=== PATIENT | female | born 1945 | race Caucasian/White ===

== ENCOUNTER 2018-03-19 19:49 | Emergency (ER) | payer MEDICARE, OTHER ==
[2018-03-19] MEDS ORDERED: Ondansetron ODT 4 MG TAB ONE (20:05)
[2018-03-19] MEDS ORDERED: Morphine 4 MG/ML Carpuject ONE ×2 (20:05→20:47)
[2018-03-19 21:07] LABS: #Basophils 0.1 thou/uL (0.0-0.2); #Eosinphils 0.1 thou/uL (0.0-0.7); #Lymphocytes 1.4 thou/uL (1.20-3.40); #Monocytes 0.9 thou/uL (0.11-0.59); #Neutrophils 10.9 thou/uL (1.40-6.50); %Basophils 0.6 % (0.0-1.0); %Eosinophils 0.7 % (0.0-10.0); %Lymphocytes 10.6 % (21.0-51.0); %Monocytes 6.4 % (0.0-10.0); %Neutrophils 81.7 % (42.0-75.0); Hemoglobin 13.9 g/dL (12.0-16.0); Mean Corpuscular HGB CONC 33.8 g/dL (32.0-36.0); Mean Corpuscular Hemoglobin 33.5 pg (27.0-31.0); Mean Corpuscular Volume 98.9 fL (78.0-98.0); Mean Platelet Volume 10.8 fL (7.4-10.4); Platelet Count 225 thou/uL (130-400); RBC Distribution Width 11.7 % (11.5-14.5); Red Blood Cell (RBC) Count 4.16 mill/uL (4.20-5.40); White Blood Cell (WBC) Count 13.3 thou/uL (4.8-10.8)
[2018-03-19 21:09] LABS: ALT (SGPT) 23 U/L (8-55); AST (SGOT) 33 U/L (5-34); Albumin 4.6 g/dL (3.4-4.8); Alkaline Phosphatase 113 U/L (40-150); Anion Gap 17 mmol/L (10-20); BUN (Urea Nitrogen) 21 mg/dL (9.8-20.1); Bilirubin, Total 0.6 mg/dL (0.2-1.2); Calc. Creatinine Clearance 0 mL/min (70-130); Calcium 9.8 mg/dL (7.8-10.44); Carbon Dioxide 25 mmol/L (23-31); Chloride 106 mmol/L (98-107); Estimated GFR-MDRD 73; Globulin 2.8 g/dL (2.4-3.5); Glucose 104 mg/dL (83-110); Potassium 4.1 mmol/L (3.5-5.1); Protein, Total 7.4 g/dL (6.0-8.3); Sodium 144 mmol/L (136-145)
--- NOTE | 2018-03-19 22:42 | RAD ---
LEFT HUMERUS TWO VIEWS: Date: 03-19-18 FINDINGS: There is a fracture through the midshaft of the humerus near the tip of the humeral component of the shoulder arthroplasty. There is lucency between the arthroplasty and cortex suggesting that there may be loosening as well. The fragments are significantly displaced. IMPRESSION: Displaced fracture of the mid-humeral shaft near the tip of the humeral component of the patient's sh oulder arthroplasty. POS: HOME
== END 2018-03-19 21:03 | disposition short-term general hospital (02) ==
LOC: BURERS 19:49
DX: S42.302A Unspecified fracture of shaft of humerus, left arm, initial encounter for closed fracture (principal); F32.9 Major depressive disorder, single episode, unspecified; Z87.891 Personal history of nicotine dependence; Z79.899 Other long term (current) drug therapy; V80.010A Animal-rider injured by fall from or being thrown from horse in noncollision accident, initial encounter
CPT/HCPCS: 80053; 85025; 96372; 96374; J2270; Q0162

== ENCOUNTER 2019-01-07 11:31 | Emergency (ER) | payer MEDICARE, OTHER ==
--- NOTE | 2019-01-07 18:33 | RAD ---
RIGHT WRIST 3 VIEWS: Date: 01/07/19 Fracture of the distal radius is present with minimal displacement or angulation. While there is a li ttle irregularity at the base of the ulnar styloid, a definite fracture cannot be diagnosed at this t khanh. Carpal bones appear intact. IMPRESSION: Acute fracture of the distal radius. POS: HOME
== END 2019-01-07 12:18 | disposition home or self-care (01) ==
LOC: BURERS 11:31
DX: S52.501A Unspecified fracture of the lower end of right radius, initial encounter for closed fracture (principal); F32.9 Major depressive disorder, single episode, unspecified; F41.9 Anxiety disorder, unspecified; W01.0XXA Fall on same level from slipping, tripping and stumbling without subsequent striking against object, initial encounter
CPT/HCPCS: 29125

== ENCOUNTER 2019-08-22 14:42 | Emergency (ER) | payer MEDICARE, OTHER | END 2019-08-22 15:56 | disposition home or self-care (01) | LOC: BURERS 14:42 | DX: T16.1XXA Foreign body in right ear, initial encounter (principal); F32.9 Major depressive disorder, single episode, unspecified; F41.9 Anxiety disorder, unspecified; E78.00 Pure hypercholesterolemia, unspecified | CPT/HCPCS: 69200 ==

== ENCOUNTER 2020-04-21 09:49 | Emergency (ER) | payer MEDICARE, OTHER ==
[2020-04-21] MEDS ORDERED: Ondansetron PF 4 MG/2 ML Vial ONE (10:22)
[2020-04-21] MEDS ORDERED: Morphine 4 MG/ML VIAL ONE (10:22)
[2020-04-21 10:23] LABS: #Basophils 0.1 thou/uL (0.0-0.2); #Eosinphils 0.1 thou/uL (0.0-0.7); #Lymphocytes 1.6 thou/uL (1.20-3.40); #Neutrophils 9.1 thou/uL (1.40-6.50); %Basophils 0.6 % (0.0-1.0); %Eosinophils 1.1 % (0.0-10.0); %Lymphocytes 13.2 % (21.0-51.0); %Monocytes 8.3 % (0.0-10.0); %Neutrophils 76.7 % (42.0-75.0); Hemoglobin 14.2 g/dL (12.0-16.0); Mean Corpuscular HGB CONC 32.5 g/dL (32.0-36.0); Mean Corpuscular Hemoglobin 33.2 pg (27.0-31.0); Mean Platelet Volume 9.5 fL (7.4-10.4); Platelet Count 198 thou/uL (130-400); Red Blood Cell (RBC) Count 4.28 mill/uL (4.20-5.40); White Blood Cell (WBC) Count 11.9 thou/uL (4.8-10.8)
[2020-04-21 10:25] LABS: Bilirubin Small (Negative); Blood, Urine Trace (Negative); Clarity Slightly Cloudy (Clear); Glucose, Urine (Dipstick) Negative (Negative); Ketone, Urine 15 mg/dL (Negative); Leukocyte Small (Negative); Nitrite Negative (Negative); Protein, Urine (Dipstick) Trace mg/dL (Neg-Trace); Specific Gravity, Urine 1.025 (1.005-1.030); Urobilinogen 0.2 mg/dL (Less than 2); pH, Urine 6.5 (5.0-9.0)
[2020-04-21 10:29] LABS: Bacteria/HPF 1+ HPF (None Seen); Mucous/LPF 1+ LPF (<2+)
[2020-04-21 10:40] LABS: ALT (SGPT) 19 U/L (8-55); AST (SGOT) 19 U/L (5-34); Albumin 4.4 g/dL (3.4-4.8); Alkaline Phosphatase 102 U/L (40-110); Anion Gap 17 mmol/L (10-20); BUN (Urea Nitrogen) 15 mg/dL (9.8-20.1); Calc. Creatinine Clearance 0 mL/min (70-130); Calcium 9.5 mg/dL (7.8-10.44); Carbon Dioxide 23 mmol/L (23-31); Chloride 105 mmol/L (98-107); Estimated GFR-MDRD 77; Globulin 2.8 g/dL (2.4-3.5); Glucose 117 mg/dL (83-110); Lipase 115 U/L (8-78); Protein, Total 7.2 g/dL (6.0-8.3); Sodium 141 mmol/L (136-145)
[2020-04-21] MEDS ORDERED: Iopamidol 370 76% 100 ML VIAL ONE (11:42)
[2020-04-21] MEDS ORDERED: Mag-Al Plus 1200 MG/1200 MG/120 MG/30 ML UDCUP ONE (12:55)
[2020-04-21] MEDS ORDERED: Lidocaine Viscous Sol 2% 15 ml UD Cup ONE (12:55)
[2020-04-21] MEDS ORDERED: Aspirin Chewable 81 MG TAB ONE (13:26)
[2020-04-21 13:42] LABS: Troponin I Less than 0.010 ng/mL (< 0.028)
[2020-04-21] MEDS ORDERED: Fentanyl 100 MCG/2 ML VIAL ONE (14:19)
--- NOTE | 2020-04-21 16:25 | CT ---
CT ANGIO OF THORAX AND ABDOMEN (CTA AORTIC DISSECTION PROTOCOL): Date: 04-21-2020 After a bolus of IV contrast, an area was scanned from just above the aortic arch through the bifurca tion of the aorta. MIP reconstructions in various planes were then obtained. FINDINGS: Arteriosclerotic changes is present in the patient's aorta and in her coronary arteries. There was no sign of aortic dissection or aneurysm at any point, however. There appears to be some plaque and may be even a little narrowing at the origin of the celiac artery. The SMA and ABDIAZIZ both fill, as do each of the renal arteries. Both common iliac arteries appear patent and contrast is seen in the proximal external and internal iliac arteries as well. The remainder of the study showed no mediastinal mass or adenopathy. No acute fractures are seen in t he chest. Old fractures are noted in the ribs. The lungs are clear. CT of the abdomen shows a small to medium sized hiatal hernia. The liver, spleen, and pancreas were u nremarkable. Tiny gallstones are seen in the gallbladder. The kidneys and adrenal glands were unremar kable. The bowel showed no dilation, wall thickening or inflammatory change around it. IMPRESSION: 1. No evidence of aortic dissection or aneurysm. 2. Several tiny gallstones. 3. Arteriosclerosis, including coronary arteries. 4. Small to medium sized hiatal hernia. Preliminary findings called to Dr. Wan at 1113 on 04-21-2020. POS: HOME
== END 2020-04-21 14:29 | disposition short-term general hospital (02) ==
LOC: BURERS 09:49
DX: K80.20 Calculus of gallbladder without cholecystitis without obstruction (principal); K85.90 Acute pancreatitis without necrosis or infection, unspecified; E78.00 Pure hypercholesterolemia, unspecified; F41.9 Anxiety disorder, unspecified; Z79.899 Other long term (current) drug therapy
CPT/HCPCS: 36415; 71275; 72191; 74175; 80053; 81003; 81015; 83690; 84484; 85025; 93005; J0500; J2270; J2405; J3010; Q9967

== ENCOUNTER 2020-12-21 13:32 | Emergency (ER) | payer MEDICARE, OTHER ==
[2020-12-21] MEDS ORDERED: Morphine 2 MG/ML VIAL ONE ×2 (14:03→15:07)
[2020-12-21] MEDS ORDERED: Ondansetron PF 4 MG/2 ML Vial ONE (14:03)
[2020-12-21 14:27] LABS: #Basophils 0.1 thou/uL (0.0-0.2); #Eosinphils 0.1 thou/uL (0.0-0.7); #Neutrophils 10.8 thou/uL (1.40-6.50); %Basophils 0.5 % (0.0-1.0); %Eosinophils 0.4 % (0.0-10.0); %Lymphocytes 7.8 % (21.0-51.0); %Monocytes 7.5 % (0.0-10.0); %Neutrophils 83.8 % (42.0-75.0); Hemoglobin 14.3 g/dL (12.0-16.0); Mean Corpuscular HGB CONC 33.4 g/dL (32.0-36.0); Mean Corpuscular Hemoglobin 34.1 pg (27.0-31.0); Mean Platelet Volume 9.5 fL (7.4-10.4); Platelet Count 192 thou/uL (130-400); RBC Distribution Width 11.6 % (11.5-14.5); Red Blood Cell (RBC) Count 4.19 mill/uL (4.20-5.40); White Blood Cell (WBC) Count 12.9 thou/uL (4.8-10.8)
[2020-12-21 14:29] LABS: MDiff Complete? YES
[2020-12-21 14:44] LABS: ALT (SGPT) 16 U/L (8-55); AST (SGOT) 21 U/L (5-34); Albumin 4.1 g/dL (3.4-4.8); Alkaline Phosphatase 103 U/L (40-110); Anion Gap 19 mmol/L (10-20); BUN (Urea Nitrogen) 11 mg/dL (9.8-20.1); Bilirubin, Total 1.5 mg/dL (0.2-1.2); Calc. Creatinine Clearance 0 mL/min (70-130); Calcium 9.3 mg/dL (7.8-10.44); Carbon Dioxide 22 mmol/L (23-31); Chloride 103 mmol/L (98-107); Globulin 3.1 g/dL (2.4-3.5); Glucose 114 mg/dL (83-110); Lipase 72 U/L (8-78); Potassium 3.8 mmol/L (3.5-5.1); Protein, Total 7.2 g/dL (5.8-8.1); Sodium 140 mmol/L (136-145)
== END 2020-12-21 15:16 | disposition short-term general hospital (02) ==
LOC: BURERS 13:32
DX: R10.10 Upper abdominal pain, unspecified (principal); R10.816 Epigastric abdominal tenderness; R11.2 Nausea with vomiting, unspecified; E78.00 Pure hypercholesterolemia, unspecified; Z79.899 Other long term (current) drug therapy
CPT/HCPCS: 80053; 83605; 83690; 85025; 93005; J2270; 96374; 96375; 96376; J2405

== ENCOUNTER 2022-06-13 14:15 | Emergency (ER) | payer MEDICARE, OTHER ==
[~2022-06-13 14:15] MED LIST: Iopamidol 370 76% 100 ML VIAL ONE
[2022-06-13] MEDS ORDERED: Morphine 4 MG/ML VIAL ONE (14:57)
[2022-06-13] MEDS ORDERED: Ondansetron PF 4 MG/2 ML Vial ONE (14:57)
[2022-06-13 15:01] LABS: #Basophils 0.1 thou/uL (0.0-0.2); #Eosinphils 0.1 thou/uL (0.0-0.7); #Lymphocytes 1.5 thou/uL (1.20-3.40); #Monocytes 0.9 thou/uL (0.11-0.59); #Neutrophils 9.2 thou/uL (1.40-6.50); %Basophils 0.6 % (0.0-1.0); %Eosinophils 1.1 % (0.0-10.0); %Lymphocytes 12.7 % (21.0-51.0); %Monocytes 7.5 % (0.0-10.0); %Neutrophils 78.2 % (42.0-75.0); Hemoglobin 13.7 g/dL (12.0-16.0); MDiff Complete? YES; Mean Corpuscular HGB CONC 35.1 g/dL (32.0-36.0); Mean Corpuscular Hemoglobin 35.3 pg (27.0-31.0); Mean Platelet Volume 10.2 fL (7.4-10.4); Platelet Count 215 10x3/uL (130-400); Platelet Morphology Comment Appears Adequate; RBC Distribution Width 11.7 % (11.5-14.5); RBC Morphology Normal; Red Blood Cell (RBC) Count 3.88 mill/uL (4.20-5.40); White Blood Cell (WBC) Count 11.7 10x3/uL (4.8-10.8)
[2022-06-13 15:19] LABS: ALT (SGPT) 17 U/L (8-55); AST (SGOT) 17 U/L (5-34); Albumin 4.3 g/dL (3.4-4.8); Alkaline Phosphatase 99 U/L (40-110); Anion Gap 15 mmol/L (10-20); BUN (Urea Nitrogen) 21 mg/dL (9.8-20.1); Calc. Creatinine Clearance 0 mL/min (70-130); Calcium 9.6 mg/dL (7.8-10.44); Carbon Dioxide 23 mmol/L (23-31); Chloride 106 mmol/L (98-107); Estimated GFR 68; Globulin 2.7 g/dL (2.4-3.5); Glucose 105 mg/dL (83-110); Lipase 59 U/L (8-78); Potassium 3.8 mmol/L (3.5-5.1); Sodium 140 mmol/L (136-145)
[2022-06-13 16:12] LABS: Bilirubin Negative (Negative); Blood, Urine Trace (Negative); Clarity Clear (Clear); Glucose, Urine (Dipstick) Negative (Negative); Ketone, Urine Trace mg/dL (Negative); Leukocyte Negative (Negative); Nitrite Negative (Negative); Protein, Urine (Dipstick) Trace mg/dL (Neg-Trace); Urobilinogen 0.2 mg/dL (Less than 2)
[2022-06-13 16:19] LABS: Bacteria/HPF None Seen HPF (None Seen); RBC/HPF 0-3 HPF (0-3); Squamous Epithelial 0-3 HPF (0-3); WBC/HPF None Seen HPF (0-3)
[2022-06-13] MEDS ORDERED: Dicyclomine 20 MG/2 ML VIAL ONE (16:54)
== END 2022-06-13 17:15 | disposition home or self-care (01) ==
LOC: BURERS 14:15
DX: K57.30 Diverticulosis of large intestine without perforation or abscess without bleeding (principal); K57.32 Diverticulitis of large intestine without perforation or abscess without bleeding; E78.5 Hyperlipidemia, unspecified; I10 Essential (primary) hypertension; I25.10 Atherosclerotic heart disease of native coronary artery without angina pectoris; Z79.899 Other long term (current) drug therapy; Z79.82 Long term (current) use of aspirin
CPT/HCPCS: 71045; 74177; 80053; 81003; 81015; 83690; 84484; 85025; 93005; 96372; 96374; 96375; J2270; J2405; Q9967